=== PATIENT | male | born 1940 | race Caucasian/White ===

== ENCOUNTER 2017-10-03 10:04 | Outpatient (CLI) | payer MEDICARE ==
[2017-10-03] MEDS ORDERED: ISOVUE-370 76%-LOCM 1 ML ONE (11:01)
== END 2017-10-03 10:05 | disposition home or self-care (01) ==
LOC: BICCT 10:04
PROVIDERS: ATTEND Internal Medicine Gastroenterology
DX: K76.89 Other specified diseases of liver (principal); K44.9 Diaphragmatic hernia without obstruction or gangrene; N28.1 Cyst of kidney, acquired; R91.1 Solitary pulmonary nodule; K52.9 Noninfective gastroenteritis and colitis, unspecified
CPT/HCPCS: 74177

== ENCOUNTER 2018-06-26 01:28 | Outpatient (CLI) | payer MEDICARE ==
[2018-06-26 14:05] LABS: #Eosinphils 0.1 thou/uL (0.0-0.7); #Lymphocytes 1.5 thou/uL (1.20-3.40); #Monocytes 0.5 thou/uL (0.11-0.59); #Neutrophils 3.6 thou/uL (1.40-6.50); %Basophils 0.4 % (0.0-1.0); %Eosinophils 1.4 % (0.0-10.0); %Lymphocytes 26.7 % (21.0-51.0); %Monocytes 8.5 % (0.0-10.0); Hemoglobin 15.7 g/dL (14.0-18.0); Mean Corpuscular Volume 91.1 fL (78.0-98.0); Mean Platelet Volume 6.8 fL (7.4-10.4); Platelet Count 238 thou/uL (130-400); RBC Distribution Width 11.8 % (11.5-14.5); Red Blood Cell (RBC) Count 5.24 mill/uL (4.70-6.10); White Blood Cell (WBC) Count 5.7 thou/uL (4.8-10.8)
[2018-06-26 14:17] LABS: Prothrombin Time 13.2 SEC (12.0-14.7)
[2018-06-26 14:25] LABS: Anion Gap 14 mmol/L (10-20); BUN (Urea Nitrogen) 17 mg/dL (8.4-25.7); Calc. Creatinine Clearance 0 mL/min (70-130); Calcium 10.1 mg/dL (7.8-10.44); Carbon Dioxide 21 mmol/L (23-31); Chloride 106 mmol/L (98-107); Estimated GFR-MDRD 90; Glucose 80 mg/dL (83-110); Potassium 3.9 mmol/L (3.5-5.1); Sodium 137 mmol/L (136-145)
== END 2018-06-26 01:29 | disposition home or self-care (01) ==
LOC: LABBT 01:28
PROVIDERS: ATTEND Orthopaedic Surgery
DX: Z01.818 Encounter for other preprocedural examination (principal); M17.11 Unilateral primary osteoarthritis, right knee
CPT/HCPCS: 80048; 85025; 85610; 87081

== ENCOUNTER 2018-07-02 09:58 | Outpatient (CLI) | payer MEDICARE | END 2018-07-02 09:59 | disposition home or self-care (01) | LOC: LABBT 09:58 | PROVIDERS: ATTEND Orthopaedic Surgery | DX: Z01.812 Encounter for preprocedural laboratory examination (principal); M17.11 Unilateral primary osteoarthritis, right knee | CPT/HCPCS: 86850; 86900; 86901 ==

== ENCOUNTER 2018-07-11 00:35 | Outpatient (CLI) | payer MEDICARE ==
[2018-07-11 08:58] LABS: #Basophils 0.1 thou/uL (0.0-0.2); #Eosinphils 0.1 thou/uL (0.0-0.7); #Lymphocytes 1.4 thou/uL (1.20-3.40); #Monocytes 0.5 thou/uL (0.11-0.59); #Neutrophils 4.6 thou/uL (1.40-6.50); %Basophils 0.7 % (0.0-1.0); %Eosinophils 1.9 % (0.0-10.0); %Lymphocytes 21.3 % (21.0-51.0); %Monocytes 7.7 % (0.0-10.0); %Neutrophils 68.4 % (42.0-75.0); Hemoglobin 15.5 g/dL (14.0-18.0); Mean Corpuscular Hemoglobin 31.6 pg (27.0-31.0); Mean Corpuscular Volume 92.9 fL (78.0-98.0); Mean Platelet Volume 6.5 fL (7.4-10.4); Platelet Count 238 thou/uL (130-400); RBC Distribution Width 11.8 % (11.5-14.5); Red Blood Cell (RBC) Count 4.91 mill/uL (4.70-6.10); White Blood Cell (WBC) Count 6.7 thou/uL (4.8-10.8)
[2018-07-11 09:20] LABS: ALT (SGPT) 22 U/L (8-55); AST (SGOT) 19 U/L (5-34); Albumin 4.4 g/dL (3.4-4.8); Alkaline Phosphatase 60 U/L (40-150); Anion Gap 11 mmol/L (10-20); BUN (Urea Nitrogen) 16 mg/dL (8.4-25.7); Bilirubin, Total 0.5 mg/dL (0.2-1.2); Calc. Creatinine Clearance 0 mL/min (70-130); Carbon Dioxide 25 mmol/L (23-31); Cardiac Risk 2.9 (Less than 4.5); Chloride 107 mmol/L (98-107); Cholesterol 103 mg/dl (< 200 Desired); Estimated GFR-MDRD 80; Globulin 2.8 g/dL (2.4-3.5); Glucose 97 mg/dL (83-110); HDL Cholesterol 35 mg/dL (>60 Neg Risk); LDL Cholesterol, Calculated 58 mg/dL; Potassium 4.2 mmol/L (3.5-5.1); Protein, Total 7.2 g/dL (5.8-8.1); Sodium 139 mmol/L (136-145); Triglycerides 49 mg/dL (Less than 150)
--- NOTE | 2018-07-11 09:55 | RAD ---
PA AND LATERAL CHEST: Date: 07/11/18 HISTORY: Preop. FINDINGS: Heart size within normal limits. Postop sternotomy changes are seen. Lungs show some chronic change. No focal infiltrates. IMPRESSION: No active intrathoracic disease. POS: TPC
== END 2018-07-11 00:36 | disposition home or self-care (01) ==
LOC: LABBT 00:35
PROVIDERS: ATTEND Internal Medicine Cardiovascular Disease
DX: Z01.818 Encounter for other preprocedural examination (principal); R94.39 Abnormal result of other cardiovascular function study
CPT/HCPCS: 71046; 80053; 80061; 85025; 93005; 93010

== ENCOUNTER 2018-07-17 05:57 | Day surgery (SDC) | payer MEDICARE ==
[2018-07-11 08:17] VITALS: BMI 25.8
[2018-07-17] MEDS ORDERED: Heparin 10,000 UNITS/1 ML VIAL ONE (06:29)
[2018-07-17] MEDS ORDERED: Midazolam HCl 2 mg/2 ml Vial ONE (07:03)
[2018-07-17] MEDS ORDERED: Fentanyl 100 MCG/2 ML VIAL ONE (07:03)
[2018-07-17] MEDS ORDERED: Protamine Sulfate 50 MG/5 ML VIAL ONE (07:37)
[2018-07-17] MEDS ORDERED: Bivalirudin 250 MG VIAL ONE (07:37)
[2018-07-17] MEDS ORDERED: Iopamidol 370 76% 100 ML VIAL ONE (09:31)
== END 2018-07-17 16:01 | disposition home or self-care (01) ==
LOC: CCL 05:57
PROC: 4A023N8 Measurement of Cardiac Sampling and Pressure, Bilateral, Percutaneous Approach (ICD-10-PCS; principal; 2018-07-17)
PROC: B2121ZZ Fluoroscopy of Single Coronary Artery Bypass Graft using Low Osmolar Contrast (ICD-10-PCS; 2018-07-17)
DX: I25.810 Atherosclerosis of coronary artery bypass graft(s) without angina pectoris (principal); I25.82 Chronic total occlusion of coronary artery; I10 Essential (primary) hypertension; E78.00 Pure hypercholesterolemia, unspecified; Z87.891 Personal history of nicotine dependence; Z95.1 Presence of aortocoronary bypass graft; Z88.5 Allergy status to narcotic agent; Z79.899 Other long term (current) drug therapy; Z79.82 Long term (current) use of aspirin; Z98.890 Other specified postprocedural states
CPT/HCPCS: 85347; 93461; 99152; 99153; C1769; J0583; J1644; J2250; J2720; J3010; Q9967

== ENCOUNTER 2018-07-25 13:00 | Outpatient (CLI) | payer MEDICARE ==
[2018-07-25 14:11] LABS: #Basophils 0.1 thou/uL (0.0-0.2); #Eosinphils 0.2 thou/uL (0.0-0.7); #Lymphocytes 1.4 thou/uL (1.20-3.40); #Monocytes 0.4 thou/uL (0.11-0.59); #Neutrophils 3.3 thou/uL (1.40-6.50); %Eosinophils 3.2 % (0.0-10.0); %Lymphocytes 25.9 % (21.0-51.0); %Monocytes 7.4 % (0.0-10.0); %Neutrophils 62.5 % (42.0-75.0); Hemoglobin 14.7 g/dL (14.0-18.0); Mean Corpuscular HGB CONC 33.9 g/dL (32.0-36.0); Mean Corpuscular Volume 91.5 fL (78.0-98.0); Mean Platelet Volume 6.3 fL (7.4-10.4); Platelet Count 237 thou/uL (130-400); RBC Distribution Width 11.8 % (11.5-14.5); Red Blood Cell (RBC) Count 4.76 mill/uL (4.70-6.10); White Blood Cell (WBC) Count 5.3 thou/uL (4.8-10.8)
[2018-07-25 14:14] LABS: Bilirubin Negative (Negative); Blood, Urine Negative (Negative); Clarity CLEAR (Clear); Glucose, Urine (Dipstick) Negative (Negative); Leukocyte Negative (Negative); Nitrite Negative (Negative); Protein, Urine (Dipstick) Negative (Neg-Trace); Specific Gravity, Urine 1.018 (1.002-1.036); Urobilinogen 0.2 mg/dL (0.2-1.0); pH, Urine 5.5 (5.0-9.0)
[2018-07-25 14:16] LABS: Bacteria/HPF None Seen HPF (None Seen); Hyaline Casts/LPF 0-3 HYALINE CAST LPF (0-3 Hyaline); Squamous Epithelial None Seen HPF (0-3); WBC/HPF 0-3 HPF (0-3)
[2018-07-25 14:18] LABS: PTT 27.6 SEC (22.9-36.1); Prothrombin Time 13.4 SEC (12.0-14.7)
[2018-07-25 14:33] LABS: Anion Gap 14 mmol/L (10-20); BUN (Urea Nitrogen) 15 mg/dL (8.4-25.7); Calc. Creatinine Clearance 0 mL/min (70-130); Calcium 9.9 mg/dL (7.8-10.44); Carbon Dioxide 20 mmol/L (23-31); Chloride 109 mmol/L (98-107); Estimated GFR-MDRD Greater than 90; Glucose 77 mg/dL (83-110); Potassium 4.2 mmol/L (3.5-5.1); Sodium 139 mmol/L (136-145)
== END 2018-07-25 13:01 | disposition home or self-care (01) ==
LOC: LABBT 13:00
PROVIDERS: ATTEND Orthopaedic Surgery
DX: Z01.812 Encounter for preprocedural laboratory examination (principal); M17.11 Unilateral primary osteoarthritis, right knee
CPT/HCPCS: 80048; 81001; 85025; 85610; 85730; 86850; 86900; 86901; 87081

== ENCOUNTER 2018-07-29 07:58 | Day surgery (SDC) | payer MEDICARE ==
[2018-07-25 13:16] VITALS: BMI 25.1
[2018-07-29] MEDS ORDERED: Tranexamic Acid 1,000 MG/10 ML VIAL ONE ×2 (08:11→12:18)
[2018-07-29] MEDS ORDERED: Sodium Chloride 0.9% 100 ML ONE (08:11)
[2018-07-29] MEDS ORDERED: Vancomycin HCl 1.5 GM in Sodium Chloride 0.9% 250 ML 300 ML IVPB SCH (08:30)
[2018-07-29] MEDS ORDERED: ePHEDrine 50 MG/ML VIAL ONE (08:45)
[2018-07-29] MEDS ORDERED: PROPOFOL 200 MG/20 ML VIAL ONE (08:45)
[2018-07-29] MEDS ORDERED: Lidocaine 1% PF 5 ML VIAL ONE (08:45)
[2018-07-29] MEDS ORDERED: diphenhydrAMINE 25 MG CAP PO PRN (08:54)
[2018-07-29] MEDS ORDERED: Acetaminophen 325 MG TAB PO PRN (08:54)
[2018-07-29] MEDS ORDERED: Promethazine HCl 25 MG/ML VIAL IM PRN ×2 (08:54→12:12)
[2018-07-29] MEDS ORDERED: Zolpidem Tartrate 5 MG TAB PO PRN ×2 (08:54→12:12)
[2018-07-29] MEDS ORDERED: Ondansetron PF 4 MG/2 ML Vial IVP PRN ×2 (08:54→12:12)
[2018-07-29] MEDS ORDERED: Ferrous Gluconate 324 MG TAB PO SCH (09:00)
[2018-07-29] MEDS ORDERED: Aspirin 81 mg Enteric Coated Tablet PO SCH (09:00)
[2018-07-29] MEDS ORDERED: Midazolam HCl 2 mg/2 ml Vial ONE (09:16)
[2018-07-29] MEDS ORDERED: Fentanyl 100 MCG/2 ML VIAL ONE ×3 (09:16→12:08)
[2018-07-29] MEDS ORDERED: Bupivacaine HCl 0.5%/Epinephrine 1:200,000/PF 30 ml Vial ONE (09:45)
[2018-07-29] MEDS ORDERED: Ropivacaine 0.2% HCl/PF (40 MG/20 ML VIAL) ONE (09:45)
[2018-07-29] MEDS ORDERED: Ketorolac Tromethamine 30 MG/ML VIAL IVP PRN (12:12)
[2018-07-29] MEDS ORDERED: Ropivacaine HCl/PF 250 ML in Premix Bag 1 BAG NERVE BLCK SCH (12:12)
[2018-07-29] MEDS ORDERED: Fentanyl 100 MCG/2 ML VIAL IV PRN (12:12)
[2018-07-29] MEDS ORDERED: HYDROcodone/Acetaminophen 10/325 mg Tablet PO PRN (12:12)
[2018-07-29] MEDS ORDERED: traMADol HCl 50 MG TAB PO PRN ×2 (12:12)
--- NOTE | 2018-07-29 13:47 | OP ---
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 OPERATIVE PROCEDURE: Cemented cruciate sparing computer-assisted navigated right total knee arthroplasty. GLASS NOVELTY MAKER: Jorge Gross PA-C ANESTHESIA: General via LMA augmented with anterior single shot sciatic block and an indwelling adductor canal block. COMPONENTS USED: [employer] triathlon primary cemented cruciate sparing, size 6 femoral component with a size 5 cemented primary tibial baseplate, 13 mm polyethylene fixed bearing insert and A32 patella button. FINDINGS: End-stage severe degenerative tricompartmental disease, [id number] arthrosis, periarticular osteophyte formation, large serous effusion, hypertrophic synovium, and changes consistent with degenerative genu valgum, posttraumatic arthritis. ESTIMATED BLOOD LOSS: Less than 100. TOURNIQUET TIME: 60 minutes at 300 mmHg. DRAINS: None. SPECIMENS: None. COMPLICATIONS: None. COUNTS: Correct. INPUT: 1600 mL crystalloid. OUTPUT: Not measured, no Stanley present. INDICATION FOR PROCEDURE: Tod is a 78-year-old white male, who has had progressive right knee pain and problem with standing and walking for the last 10 to 12 years. He has failed conservative management. Elected to proceed with total knee arthroplasty as definitive treatment of his pain. PROCEDURE IN DETAIL: After informed consent was obtained in the preoperative holding area, the patient was taken to the operative suite where general anesthesia was induced. Once adequate level of general anesthesia was obtained, the patient was positioned and a well-padded tourniquet was placed around the right proximal thigh. The right lower extremity was then prepped and draped in the usual sterile fashion. Prior to exsanguination, a time-out was called and all members of the surgical team agreed upon site, surgeon, and patient. The extremity was then exsanguinated and the tourniquet was raised. A midline longitudinal incision was then made directly over the patella extending 2 fingerbreadths above the superior pole of the patella and 2 fingerbreadths inferior to the inferior patellar pole of the patella. Deeper subcutaneous layers were dissected sharply and local bleeding was controlled with Bovie electrocautery. A quad tendon longitudinal split was then made sharply and a median parapatellar arthrotomy was carried out both sharp and with Bovie electrocautery, carried down to 1 fingerbreadth medial to the tibial tubercle. The knee was then placed into flexion and the patella was everted nicely, and a copious fat pad ectomy was performed, allowing for greater exposure of the tibia. The computer-assisted distal femoral fiducial was then placed and pinned firmly, and the distal femoral cutting guide was pinned firmly into place. The oscillating saw was then used to remove the appropriate amount of bone. The 4-in-1 cutting block was then placed on the distal femur and the oscillating saw was used to remove the appropriate amount of bone off the anterior, posterior, and chamfer cuts. After completion of bone cuts, the anterior cruciate ligament was resected sharply and the posterior cruciate ligament retractor was placed and the tibia was subluxed for better exposure. Partial meniscectomies were carried out, and the tibial computer-assisted fiducial was pinned, and the cutting guide was placed. Oscillating saw was then used to remove the bone, with Hohmann retractors used to take care and protect the collateral ligaments. After the tibial resection was performed, a laminar photovoltaic solar cell designer was placed in between the freshened bone cuts. The knee placed at 90 degrees and further bilateral meniscectomies were carried out, and the curved osteotome and curettage were used to remove any excess bone spurs in the posterior compartment. The trial femoral component, tibial baseplate were placed with the appropriate polyethylene trial insert with an appropriate polyethylene spacer and patellar button. The knee was taken through full range of motion with flexion and extension from 0 to 90 degrees and patellar broach squarely in the trochlea without any squinting or subluxation noted. The knee was also stable to varus and valgus stressing at 0, 15, 45, and 90 degrees of flexion. The drawer was negative. All trial components were then removed and the keel punch was used to provide the appropriate defect in the tibia with a mallet. The freshened bone cuts were copiously irrigated with pulsatile lavage of about 1.5 L to remove all excess debris. The freshened bone cuts were then dried with suction and lap sponge. The knee was placed in flexion and retractors were placed to provide access to all bone cuts. Tobramycin-impregnated methyl methacrylate cement was then placed on the freshened bone cuts and implants which were malleted firmly into place. Curettage and Hamlet elevators were used to remove any excess bone cement. The knee was placed into full extension and the patellar button was placed under compression, and the cement was allowed to cure. Once completed, the components were again taken through full range of motion and copious irrigation of the knee was carried out with another liter of normal saline. All components were inspected fully with full range of motion and varus and valgus stressing. There was no laxity noted and full extension was observed clinically. Primary closure was accomplished with #2 interrupted Vicryl stitch of the arthrotomy defect. This was oversewn with a #2 running Quill barbed stitch. The subcutaneous layer was then closed with a running 0 barbed Monocryl stitch and skin closure accomplished with a running subcuticular 3-0 Monocryl barbed Quill stitch and augmented with cement on the skin. Tourniquet was lowered. Good spontaneous return of distal pulses was noted clinically and a sterile dressing was applied to the incision. The procedure was terminated without any complications. The patient was awakened in the operative suite and taken to the recovery room in stable condition. Job ID: [id number]
[2018-07-29] MEDS: Aspirin 81 mg Enteric Coated Tablet PO SCH ×3 (13:58→20:27)
[2018-07-29] MEDS: Sodium Chloride 0.9% 1,000 ML IV SCH ×2 (13:58→18:33)
[2018-07-29] MEDS: HYDROcodone/Acetaminophen 10/325 mg Tablet PO PRN (15:12)
[2018-07-29] MEDS: Clindamycin/D5W 900 MG in Premix Bag 1 BAG IVPB SCH ×2 (15:34→21:44)
--- NOTE | 2018-07-29 16:13 | RAD ---
RIGHT KNEE TWO VIEWS: History: Status post arthroplasty. Comparison: None. FINDINGS: There are expected post-operative changes compatible with right knee arthroplasty. Alignment is near anatomic. IMPRESSION: Post-operative changes as above. POS: JOHN
--- NOTE | 2018-07-29 17:47 | PDOC.PN ---
- Subjective Encounter Start Date: 07/29/18 Encounter Start Time: 17:35 Subjective: Consult for med mgmt. s/p R TKA. Hx, labs, x-rays and EKG reviewed -: Feeling good this pm. Minimal knee pain. - Objective MAR Reviewed: Yes Vital Signs & Weight: Vital Signs (12 hours) Temp Pulse Resp BP Pulse Ox 07/29/18 13:25 97.5 F L 77 18 116/81 95 Weight Weight 180 lb EKG Reviewed by me: Yes (EKG - NSR, LAD, no acute changes) Phys Exam - Physical Examination Constitutional: NAD HEENT: PERRLA, sclera anicteric, oral pharynx no lesions Neck: no nodes, no JVD, supple, full ROM Respiratory: no wheezing, no rales, no rhonchi, clear to auscultation bilateral S1, S2 Cardiovascular: RRR, no significant murmur, no rub, gallop Gastrointestinal: soft, non-tender, no distention, positive bowel sounds R knee with surgical dressing in place, + edema Musculoskeletal: pulses present, edema present Neurological: normal sensation, moves all 4 limbs Psychiatric: A&O x 3 Skin: normal turgor, cap refill <2 seconds Dx/Plan (1) HTN (hypertension) Code(s): I10 - ESSENTIAL (PRIMARY) HYPERTENSION Status: Chronic Qualifiers: Hypertension type: essential hypertension Qualified Code(s): I10 - Essential (primary) hypertension Comment: Continue Cardura and Metoprolol, serial BP monitoring (2) CAD (coronary artery disease) Code(s): I25.10 - ATHSCL HEART DISEASE OF [place] CORONARY ARTERY W/O ANG PCTRS Status: Chronic Comment: Patent grafts by [facility] 07/17/18, continue ASA, Lipitor (3) HLD (hyperlipidemia) Code(s): E78.5 - HYPERLIPIDEMIA, UNSPECIFIED Status: Chronic Comment: Continue Lipitor 20mg HS (4) Status post total knee replacement, right Code(s): Z96.651 - PRESENCE OF RIGHT ARTIFICIAL KNEE JOINT Status: Acute Comment: Joint U protocol, pain control, ASA 81mg BID - Plan continue antibiotics, PT/OT, social media manager, out of bed/ambulate, DVT proph w/ SCDs Stable currently -: Continue Joint U protocol -: Resume Metoprolol/Cardura -: OOB/PT -: ASA 81mg BID * AM lab: CBC * Thank you for the consult. Will continue to follow with primary service.
[2018-07-29] MEDS: Metoprolol Tartrate 25 MG TAB PO SCH (20:23)
[2018-07-29] MEDS ORDERED: Atorvastatin Calcium 20 MG TAB PO SCH (21:00)
[2018-07-29] MEDS ORDERED: DOXAZOSIN MESYLATE 4 MG PO SCH (21:00)
[2018-07-30] MEDS: HYDROcodone/Acetaminophen 10/325 mg Tablet PO PRN ×4 (00:30→14:21)
[2018-07-30 06:20] LABS: Hemoglobin 12.7 g/dL (14.0-18.0); Mean Corpuscular HGB CONC 34.1 g/dL (32.0-36.0); Mean Corpuscular Hemoglobin 31.2 pg (27.0-31.0); Mean Corpuscular Volume 91.5 fL (78.0-98.0); Mean Platelet Volume 6.7 fL (7.4-10.4); Platelet Count 195 thou/uL (130-400); RBC Distribution Width 11.5 % (11.5-14.5); Red Blood Cell (RBC) Count 4.05 mill/uL (4.70-6.10); White Blood Cell (WBC) Count 9.6 thou/uL (4.8-10.8)
[2018-07-30] MEDS: Sodium Chloride 0.9% 1,000 ML IV SCH ×2 (07:23→13:36)
[2018-07-30] MEDS: Aspirin 81 mg Enteric Coated Tablet PO SCH (08:35)
[2018-07-30] MEDS: Metoprolol Tartrate 25 MG TAB PO SCH (08:38)
[2018-07-30] MEDS ORDERED: Calcium Carbonate 500 MG ChewTAB PO PRN (08:55)
[2018-07-30] MEDS ORDERED: Senokot S 8.6-50 MG TAB PO SCH (09:00)
[2018-07-30] MEDS ORDERED: Ferrous Gluconate 324 MG TAB PO SCH (09:00)
[2018-07-30] MEDS ORDERED: Multivitamin W/ Minerals 1 TAB PO SCH (09:00)
--- NOTE | 2018-07-30 10:59 | PDOC.PN ---
- Subjective Encounter Start Date: 07/30/18 Encounter Start Time: 08:20 -: old records requested/rev Patient seen and examined. No new complaints. No overnight events - Objective Resuscitation Status - Order Detail: 07/30/18 07:13 Resuscitation Status Routine Resuscitation Status: FULL: Full Resuscitation MAR Reviewed: Yes Vital Signs & Weight: Vital Signs (12 hours) Temp Pulse Resp BP Pulse Ox 07/30/18 08:06 98.9 F 71 14 110/64 91 L 07/30/18 03:12 98.8 F 66 18 99/61 96 07/30/18 00:50 97.7 F 86 18 102/61 95 Weight Weight 180 lb I&O: 07/29/18 07/30/18 07/31/18 06:59 06:59 06:59 Intake Total 1120 650 Output Total 780 575 Balance 340 75 Result Diagrams: 07/30/18 05:48 Radiology Reviewed by me: Yes EKG Reviewed by me: Yes Phys Exam - Physical Examination Constitutional: NAD HEENT: PERRLA, moist MMs, sclera anicteric Neck: no JVD, supple Respiratory: no wheezing, no rales, no rhonchi Cardiovascular: RRR, no significant murmur, no rub Gastrointestinal: soft, non-tender, no distention, positive bowel sounds Musculoskeletal: no edema, pulses present nerve block in place, right knee with dressing Neurological: non-focal, normal sensation, moves all 4 limbs Lymphatic: no nodes Psychiatric: normal affect, A&O x 3 Skin: no rash, normal turgor Dx/Plan (1) Status post total knee replacement, right Code(s): Z96.651 - PRESENCE OF RIGHT ARTIFICIAL KNEE JOINT Status: Acute Comment: Joint U protocol, pain control, ASA 81mg BID (2) CAD (coronary artery disease) Code(s): I25.10 - ATHSCL HEART DISEASE OF [place] CORONARY ARTERY W/O ANG PCTRS Status: Chronic Comment: Patent grafts by [facility] 07/17/18, continue ASA, Lipitor (3) HLD (hyperlipidemia) Code(s): E78.5 - HYPERLIPIDEMIA, UNSPECIFIED Status: Chronic Comment: Continue Lipitor 20mg HS (4) HTN (hypertension) Code(s): I10 - ESSENTIAL (PRIMARY) HYPERTENSION Status: Chronic Qualifiers: Hypertension type: essential hypertension Qualified Code(s): I10 - Essential (primary) hypertension Comment: Continue Cardura and Metoprolol, serial BP monitoring - Plan cont current plan of care, PT/OT * medication reviewed as below * symptomatic treatment * stable medically * nerve block as per anesthesia * full code * aspirin for DVT prophylaxis * pain controlled * discharge as per primary. Review of Systems - Review of Systems ENT: negative: Ear Pain, Ear Discharge, Nose Pain, Nose Discharge, Nose Congestion, Mouth Pain, Mouth Swelling, Throat Pain, Throat Swelling, Other Respiratory: negative: Cough, Dry, Shortness of Breath, Hemoptysis, SOB with Excertion, Pleuritic Pain, Sputum, Wheezing Cardiovascular: negative: chest pain, palpitations, orthopnea, paroxysmal nocturnal dyspnea, edema, light headedness, other Gastrointestinal: negative: Nausea, Vomiting, Abdominal Pain, Diarrhea, Constipation, Melena, Hematochezia, Other Genitourinary: negative: Dysuria, Frequency, Incontinence, Hematuria, Retention , Other Musculoskeletal: negative: Neck Pain, Shoulder Pain, Arm Pain, Back Pain, Hand Pain, Leg Pain, Foot Pain, Other Skin: negative: Rash, Lesions, Suman, Bruising, Other - Medications/Allergies Allergies/Adverse Reactions: Allergies Allergy/AdvReac Type Severity Reaction Status Date / Time codeine Allergy purple Verified 07/25/18 13:16 splotches Medications: Current Medications Acetaminophen (Tylenol) 650 mg PO Q4H PRN PRN Reason: Headache/Fever or Pain Hydrocodone Bitart/Acetaminophen (Hymera 10/325) 1 tab PO Q4H PRN PRN Reason: Pain (1-3) Last Admin: 07/29/18 20:24 Dose: 1 tab Hydrocodone Bitart/Acetaminophen (Hymera 10/325) 2 tab PO Q4H PRN PRN Reason: PAIN (4-6) Last Admin: 07/30/18 10:25 Dose: 2 tab Aspirin (Ecotrin) 81 mg PO BID [facility] Last Admin: 07/30/18 08:35 Dose: 81 mg Atorvastatin Calcium (Lipitor) 20 mg PO HS [facility] Last Admin: 07/29/18 20:23 Dose: 20 mg Calcium Carbonate (Tums) 1,000 mg PO Q4H PRN PRN Reason: Heartburn or Indigestion Diphenhydramine HCl (Benadryl) 25 mg PO Q6H PRN PRN Reason: Itching Fentanyl (Sublimaze) 50 mcg IV Q1H PRN PRN Reason: Breakthrough pain Ferrous Gluconate (Fergon) 324 mg PO BID [facility] Last Admin: 07/30/18 08:35 Dose: 324 mg Sodium Chloride (Normal Saline 0.9%) 1,000 mls @ 100 mls/hr IV .Q10H [facility] Last Admin: 07/30/18 07:23 Dose: Not Given Ropivacaine 250 ml/ Device 250 mls @ 10 mls/hr NERVE BLCK INF [facility] Iron/Minerals/Multivitamins (Theragran M) 1 tab PO DAILY [facility] Last Admin: 07/30/18 08:35 Dose: 1 tab Ketorolac Tromethamine (Toradol) 15 mg IVP Q6H PRN PRN Reason: Moderate Pain (4-6) Stop: 08/01/18 12:13 Metoprolol Tartrate (Lopressor) 37.5 mg PO BID [facility] Last Admin: 07/30/18 08:38 Dose: 37.5 mg Ondansetron HCl (Zofran) 4 mg IVP Q6H PRN PRN Reason: Nausea/Vomiting Ondansetron HCl (Zofran) 4 mg IVP Q6H PRN PRN Reason: Nausea/Vomiting Doxazosin Mesylate [ (Cardura Xl] 4 Mg) [address] [facility] Promethazine HCl (Phenergan) 12.5 mg IM Q4H PRN PRN Reason: Nausea/Vomiting Promethazine HCl (Phenergan) 12.5 mg IM Q4H PRN PRN Reason: Nausea Senna/Docusate Sodium (Senokot S) 2 tab PO BID [facility] Last Admin: 07/30/18 08:36 Dose: 2 tab Sodium Chloride (Flush - Normal Saline) 10 ml IVF PRN PRN PRN Reason: Saline Flush Tramadol HCl (Ultram) 50 mg PO Q6H PRN PRN Reason: Mild Pain (1-3) Tramadol HCl (Ultram) 100 mg PO Q6H PRN PRN Reason: Moderate Pain 4-6 Last Admin: 07/30/18 08:33 Dose: 100 mg Zolpidem Tartrate (Ambien) 5 mg PO HSPRN PRN PRN Reason: Insomnia Zolpidem Tartrate (Ambien) 5 mg PO HSPRN PRN PRN Reason: Insomnia
[2018-07-30] MEDS ORDERED: Ropivacaine 0.2% 550 ML 550 ML NERVE BLCK SCH (12:15)
[2018-07-30 13:32] VITALS: BP 127/70; TEMP 98.2
== END 2018-07-30 13:13 | disposition home health service (06) ==
LOC: SDC 07:58 → SJJU 13:35 → SDC 07-30 13:13
PROVIDERS: ATTEND Orthopaedic Surgery
PROC: 0SRC0J9 Replacement of Right Knee Joint with Synthetic Substitute, Cemented, Open Approach (ICD-10-PCS; principal; 2018-07-29)
PROC: 8E0YXBZ Computer Assisted Procedure of Lower Extremity (ICD-10-PCS; 2018-07-29)
PROC: 3E0T3BZ Introduction of Anesthetic Agent into Peripheral Nerves and Plexi, Percutaneous Approach (ICD-10-PCS; 2018-07-29)
DX: M17.11 Unilateral primary osteoarthritis, right knee (principal); M21.061 Valgus deformity, not elsewhere classified, right knee; G89.18 Other acute postprocedural pain; I11.9 Hypertensive heart disease without heart failure; E78.00 Pure hypercholesterolemia, unspecified; I25.10 Atherosclerotic heart disease of native coronary artery without angina pectoris; E78.5 Hyperlipidemia, unspecified; Z87.891 Personal history of nicotine dependence; Z79.82 Long term (current) use of aspirin; Z79.899 Other long term (current) drug therapy; Z88.5 Allergy status to narcotic agent
CPT/HCPCS: 20985; 27447; 64445; 73560; 85027; 97110; 97116 ×2; 97139; 97530; 98961; A4306; C1713; C1776; 36415; J0670; J2001; J2250; J2704; J2795; J3010; J3370; J3490; J7050

== ENCOUNTER 2022-07-19 14:54 | Outpatient (CLI) | payer MEDICARE ==
[2022-07-19 15:38] LABS: Hemoglobin 14.5 g/dL (13.5-17.5); Mean Corpuscular HGB CONC 33.5 g/dL (32.0-36.0); Mean Corpuscular Hemoglobin 30.1 pg (27.0-33.0); Platelet Count 236 10x3/uL (150-450); RBC Distribution Width 12.1 % (11.5-14.5); Red Blood Cell (RBC) Count 4.81 10x6/uL (4.32-5.72); White Blood Cell (WBC) Count 6.1 10x3/uL (3.5-10.5)
[2022-07-19 15:58] LABS: INR-International Normal Ratio 0.9; PTT 26.8 sec (22.0-33.0); Prothrombin Time 10.1 sec (9.5-12.1)
[2022-07-19 15:59] LABS: Anion Gap 15 mmol/L (10-20); BUN (Urea Nitrogen) 21 mg/dL (8.4-25.7); Calc. Creatinine Clearance 0 mL/min (70-130); Calcium 9.4 mg/dL (7.8-10.44); Carbon Dioxide 22 mmol/L (23-31); Chloride 106 mmol/L (98-107); Estimated GFR 79; Glucose 135 mg/dL (83-110); Potassium 4.4 mmol/L (3.5-5.1); Sodium 139 mmol/L (136-145)
== END 2022-07-19 14:55 | disposition home or self-care (01) ==
LOC: LABBT 14:54
PROVIDERS: ATTEND Urology
DX: Z01.818 Encounter for other preprocedural examination (principal); N32.9 Bladder disorder, unspecified
CPT/HCPCS: 80048; 85027; 85610; 85730; 87086; 93005; 93010